=== PATIENT | female | born 1940 | race Caucasian/White ===

== ENCOUNTER 2019-03-11 14:04 | Inpatient (IN) | payer OTHER ==
[~2019-03-11] VITALS: Ht 160 cm; Wt 83.6 kg
[~2019-03-11 14:04] MED LIST: ATEN25; ATOR20 PO; DABI150C PO; DOCU100 PO; LEVSOD100 PO; LEVSOD175; Pepcid20 MG PO; SOTO80 PO
[2019-03-11 14:51] LABS: BASOPHILS ABSOLUTE AUTO 0.04 K/mm3 (0.00-0.23); BASOPHILS PERCENT AUTO 0 % (0-2); EOSINOPHILS ABSOLUTE AUTO 0.04 K/mm3 (0.00-0.68); EOSINOPHILS PERCENT AUTO 0 % (0-6); Hematocrit 37.7 % (33.0-51.0); Hemoglobin 12.4 g/dL (11.5-16.0); IMMATURE GRAN ABSOLUTE AUTO 0.09 K/mm3 (0.00-0.10); IMMATURE GRAN PERCENT AUTO 1 % (0-1); LYMPHOCYTES ABSOLUTE AUTO 1.34 K/mm3 (0.84-5.20); LYMPHOCYTES PERCENT AUTO 9 % (21-46); MONOCYTES PERCENT AUTO 10 % (4-13); Mean Corpuscular HGB Conc 32.9 g/dL (31.5-36.5); Mean Corpuscular Volume 85 fL (80-100); Mean Platelet Volume 11.6 fL (9.1-12.4); NEUTROPHILS ABSOLUTE AUTO 11.54 K/mm3 (1.96-9.15); NEUTROPHILS PERCENT AUTO 80 % (41-73); Platelet Count 317 K/mm3 (150-400); RDW Coefficient Variation 13.9 % (11.7-14.2); RDW Standard Deviation 43.2 fL (35.1-46.3); Red Blood Cell Count 4.43 M/mm3 (3.80-5.20); White Blood Cell Count 14.45 K/mm3 (4.00-11.30)
[2019-03-11 14:56] LABS: International Normalized Ratio 1.08; Prothrombin Time Results 11.4 Sec (9.7-11.5)
[2019-03-11 15:03] LABS: Alanine Aminotransfer (ALT/SGP 19 U/L (12-78); Albumin, Blood 3.2 g/dL (3.4-5.0); Albumin/Globulin Ratio 0.8 (0.8-1.8); Alk Phos 72 U/L (50-136); Anion Gap 10 mmol/L (6-16); Aspartate Aminotrans (AST/SGOT 20 U/L (12-37); Bilirubin, Total 0.6 mg/dL (0.1-1.0); Blood Urea Nitrogen 23 mg/dL (8-24); Bun/Creatinine Ratio 31.3 (12.0-20.0); CO2, Blood 24 mmol/L (21-32); Calcium, Blood 8.9 mg/dL (8.5-10.1); Chloride, Blood 95 mmol/L (98-108); Creatinine, Blood 0.74 mg/dL (0.40-1.00); Globulin, Blood 4.2 g/dL (2.2-4.0); Glomerular Filtration Rate >60 (60-); Glucose, Blood 110 mg/dL (70-99); Potassium, Blood 4.3 mmol/L (3.5-5.5); Sodium, Blood 129 mmol/L (136-145); Total Protein, Blood 7.4 g/dL (6.4-8.2); Troponin I <0.015 ng/mL (0.000-0.040)
[2019-03-11] MEDS ORDERED: XARELTO15 MG PO (15:12)
[2019-03-11] MEDS ORDERED: PRED20 PO (15:12)
[2019-03-11] MEDS ORDERED: AMOXICILLIN-CL1 EACH PO (15:12)
[2019-03-11] MEDS ORDERED: ALBU90OI61 INH (16:51)
[2019-03-11] MEDS ORDERED: Vitamin D2000 UNIT PO (18:49)
--- NOTE | 2019-03-11 23:48 | NUR ---
UPDATE MIDNIGHT VITAL SIGNS NOT TAKEN DUE TO PATIENT'S SLEEP STUDY. PATIENT CURRENTLY APPEARS TO BE ASLEEP.
[2019-03-12 07:07] LABS: BASOPHILS ABSOLUTE AUTO 0.01 K/mm3 (0.00-0.23); BASOPHILS PERCENT AUTO 0 % (0-2); EOSINOPHILS PERCENT AUTO 0 % (0-6); Hematocrit 40.2 % (33.0-51.0); Hemoglobin 13.2 g/dL (11.5-16.0); IMMATURE GRAN ABSOLUTE AUTO 0.06 K/mm3 (0.00-0.10); IMMATURE GRAN PERCENT AUTO 1 % (0-1); LYMPHOCYTES ABSOLUTE AUTO 0.91 K/mm3 (0.84-5.20); LYMPHOCYTES PERCENT AUTO 9 % (21-46); MONOCYTES ABSOLUTE AUTO 0.08 K/mm3 (0.16-1.47); MONOCYTES PERCENT AUTO 1 % (4-13); Mean Corpuscular HGB Conc 32.8 g/dL (31.5-36.5); Mean Corpuscular Volume 85 fL (80-100); Mean Platelet Volume 11.1 fL (9.1-12.4); NEUTROPHILS ABSOLUTE AUTO 8.95 K/mm3 (1.96-9.15); NEUTROPHILS PERCENT AUTO 89 % (41-73); Platelet Count 301 K/mm3 (150-400); RDW Standard Deviation 43.4 fL (35.1-46.3); Red Blood Cell Count 4.72 M/mm3 (3.80-5.20); White Blood Cell Count 10.01 K/mm3 (4.00-11.30)
[2019-03-12 07:33] LABS: Anion Gap 8 mmol/L (6-16); Blood Urea Nitrogen 19 mg/dL (8-24); Bun/Creatinine Ratio 30.6 (12.0-20.0); CO2, Blood 26 mmol/L (21-32); Calcium, Blood 9.1 mg/dL (8.5-10.1); Chloride, Blood 100 mmol/L (98-108); Creatinine, Blood 0.62 mg/dL (0.40-1.00); Glomerular Filtration Rate >60 (60-); Glucose, Blood 149 mg/dL (70-99); Magnesium, Blood 2.4 mg/dL (1.6-2.4); Potassium, Blood 4.1 mmol/L (3.5-5.5); Sodium, Blood 134 mmol/L (136-145)
[2019-03-12 07:36] LABS: Thyroid Stimulating Hormone 0.372 uIU/mL (0.360-4.800); Triiodothyronine, Free 1.55 pg/mL (2.18-3.98)
--- NOTE | 2019-03-12 08:00 | NUR ---
SHIFT SUMMARY PATIENT PLEASENT AND CHEERFUL THROUGHOUT THE NIGHT. PATIENT CONVERTED FROM AFIB TO SINUS RHYTHM IN THE 60'S AT APPROX 2215. CARDIZEM GTT TURNED OFF AT THAT TIME. PATIENT HAS REMAINED IN NSR THROUGHOUT THE NIGHT SINCE. PATIENT APPEARED TO SLEEP WELL THROUGHOUT THE NIGHT WITH NO COMPLAINTS OF PAIN OR DISCOMFORT. PATIENT HAD SLEEP STUDY LAST NIGHT. PATIENT UP TO THE BATHROOM WITH SBA DUE TO IV LINES AND IV POLL. VITAL SIGNS CHARTED. IV FLUIDS RUNNING PER EMAR. REPORT GIVEN TO ONCOMING RN.
--- NOTE | 2019-03-12 18:13 | NUR ---
SHIFT SUMMARY PT RESTING IN BED THROUGHOUT THE DAY. UP TO BATHROOM WITH STANDBY ASSIST. ALERT AND ORIENTED X3. DENIES PAIN TODAY. LUNG SOUNDS EXPIRATORY WHEEZES WITH COARSENESS THROUGHOUT. HARSH COUGH NOTED, SOME SPUTUM PRODUCTION. PT THROWING IT AWAY IN TISSUES. NSR RATE 60-80s ON TELEMETRY. WILL CONTINUE TO MONITOR.
--- NOTE | 2019-03-12 21:19 | NUR ---
PCU NIGHTSHIFT ASSUMED CARE OF PT APPROX. 1900. PT A&O X4. ALTHOUGH FORGETFUL AT TIMES AND OFTEN REPEATED QUESTIONS. ASSESSMENT COMPLETED. VITAL SIGNS STABLE. PT HEART RHYTHM NSR ALTHOUGH SINUS TACHYCARDIA WHEN COUGHING. PT REPROTSCOUGH IS OCCASIONAL PRODUCITVE AND IS NOT A LIGHT YELLOW TO WHITE COLOR. PT ABLE TO AMUBLATE TO BATHROOM NEEDED AND TOLERTED WELL. REINFORCED EDUCATION ON USE OF CALL LIGHT. BED IN LOW POSITION, BED ALARM ON, CALL LIGHT IN REACH AND PT DENIES ANY NEEDS AT THIS TIME.
--- NOTE | 2019-03-13 05:15 | NUR ---
SHIFT SUMMARY PT PLEASANT, COOPERATIVE AND USES CALL LIGHT APPROPRIATELY. PT REMAINS A&O X4. PT OFTEN ASKED REPEATED QUESTIONS. PT INQURIED ABOUT FURTHER INFORMATION ON VARIOUS THINGS THROUGHOUT THE SHIFT. ASSESSMENT FINDINGS REMAIN UNCHANGED. VITAL SIGNS STABLE. PT HAD COUGH ALL THROUGHOUT THE NIGHT. AND REPORTS COUGH TO BE PRODUCTIVE AT TIMES WHICH WAS CLEAR TO CLEAR YELLOW. PT DIDNT REST MUCH DURING SHIFT. SPENT MOST OF THE NIGHT AWAKE. PT ABLE TO AMUBALTE TO BATHROOM NEEDED. PT WAS ABLE TO CLEAN SELF THIS MORNING WITH RAG AND SOAP. PT RECIEVED NEW GOWN AND LINENS. PT CONTINUED THROUGHOUT THE NIGHT TO EXPRESS CONCERNS ABOUT GETTING THRUSH FROM BREATHING TREATMENTS. EDUCATED AND REINFORCED IMPORTANCE OF SWISHING. BED IN LOW POSITION, BED ALARM ON, CALL LIGHT IN REACH AND PT DENIES ANY NEEDS AT THIS TIME. WILL CONTINUE TO MONITOR UNTIL HANDOFF TO DAYSHIFT RN.
[2019-03-13] MEDS ORDERED: GUAI600T33 PO (11:11)
[2019-03-13] MEDS ORDERED: DULERA 200 MCG/13 GM INH (11:13)
[2019-03-13] MEDS ORDERED: DELTASONE20 MG PO (11:20)
[2019-03-13] MEDS ORDERED: TIOT18 INH (11:22)
--- NOTE | 2019-03-13 11:23 | NUR ---
Call to Dr. Gutierrez regarding pharmacist's recommendation that Xarelto dose be adjusted from 20 mg daily to 15 mg daily based on creatinine clearance and pt's age. Anticipating new orders for discharge. Also spoke with Sudha Ambrocio, who is organizing the pt's discharge and follow-up, and informed her of the change and also to follow up with the pt's prednisone dosing, which likely will need tapering.
--- NOTE | 2019-03-13 12:46 | NUR ---
45 minutes spent in discharge instructions and explanations, discussion with the pt regarding her new prescriptions and adjusted dose of Xarelto as well as follow up appointments with her PCP and pulmonology referral. The pt is ambulatory, alert and eager to learn about her medications. She expresses some concern about possible side effects, including the redness of her cheeks which she states happened when she was first prescribed Augmentin before this hospitalization. Encouraged her to continue working with her PCP to discuss side effects of medications and benefits to taking them, and also changes which could be made after her prednisone taper is completed.
== END 2019-03-13 13:10 | disposition home or self-care (01) | DRG 308 ==
LOC: ER 14:04 → PCU 16:59 → EDBEDREQTM 17:56 → EDBEDREQ 17:56 → EDBEDREQSVC 17:56 → PCU 18:30
PROVIDERS: Physician Assistant; ADMIT Internal Medicine
DX: I48.2 Chronic atrial fibrillation (principal); J96.01 Acute respiratory failure with hypoxia; E87.1 Hypo-osmolality and hyponatremia; J44.1 Chronic obstructive pulmonary disease with (acute) exacerbation; I95.9 Hypotension, unspecified; J98.01 Acute bronchospasm; Z86.73 Personal history of transient ischemic attack (TIA), and cerebral infarction without residual deficits; E89.0 Postprocedural hypothyroidism; J40 Bronchitis, not specified as acute or chronic
CPT/HCPCS: 36415; 71046; 80048; 80053; 83735; 83880; 84145; 84439; 84443; 84481; 84484; 85025; 85610; 93005; 93010; 93306; 94640; 94667; 94760; 94762; 96365; 96366; 99285-25; C9113; J2930; J7120

== ENCOUNTER → 2019-03-22 | Outpatient (CLI) | payer OTHER ==
[~2019-03-22] MED LIST changes: +ALBU90OI61 INH; +AMOXICILLIN-CL1 EACH PO; +DELTASONE20 MG PO; +DULERA 200 MCG/13 GM INH; +GUAI600T33 PO; +PRED20 PO; +TIOT18 INH; +Vitamin D2000 UNIT PO; +XARELTO15 MG PO
== END | disposition home or self-care (01) ==
LOC: LAB SHORT 13:58 → LAB 13:58
DX: J20.9 Acute bronchitis, unspecified (principal); R06.2 Wheezing; R09.89 Other specified symptoms and signs involving the circulatory and respiratory systems
CPT/HCPCS: 87070; 87205